=== PATIENT | male | born 1965 | race Caucasian/White ===

== ENCOUNTER 2023-10-04 13:36 | Emergency (ER) | payer SELFPAY ==
[2023-10-04] MEDS ORDERED: predniSONE 20 MG TAB ONE (14:37)
[2023-10-04] MEDS ORDERED: Ketorolac Tromethamine 30 MG (1 mL) VIAL ONE (14:37)
== END 2023-10-04 16:16 | disposition home or self-care (01) ==
LOC: ERS 13:36
DX: M25.572 Pain in left ankle and joints of left foot (principal); M79.672 Pain in left foot; G62.9 Polyneuropathy, unspecified; F17.220 Nicotine dependence, chewing tobacco, uncomplicated
CPT/HCPCS: 96372; J1885; J7512